=== PATIENT | female | born 1945 | race Caucasian/White ===

== ENCOUNTER 2020-03-18 06:26 | Inpatient (IN) ==
[2020-03-18] MEDS ORDERED: NITROGLYCERIN SL 0.4 MG TABLET SL PRN (07:01)
[2020-03-18 07:08] LABS: Basophils # 0.1 10*3/uL (0.0-0.2); Basophils % 0.5 % (0.0-0.8); Eosinophils # 0.6 10*3/uL (0.0-0.87); Eosinophils % 2.5 % (0.00-10.9); Hematocrit 39.4 VOL% (35.7-47.0); Hemoglobin 12.5 GM/DL (12.0-16.0); Immature Granulocytes % 0.5 %; Immature Granulocytes Absolute 0.12 #; Lymphocytes % 16.5 % (21.3-54.2); Mean Corpuscular HGB Conc 31.7 GM/DL (32-36); Mean Corpuscular Volume 91.2 FL (87-102); Mean Platelet Volume 10.2 FL (9.6-12.0); Monocytes % 5.7 % (1.7-12.7); Neutrophils % 74.3 % (38.7-73.9); Platelet Count 390 T/CUMM (130-400); Red Blood Count 4.32 MC/CUMM (3.8-5.5); Red Cell Distribution Width 15.6 % (9.3-17.3); White Blood Count 24.2 T/CUMM (4-12)
[2020-03-18 07:27] LABS: Albumin 3.5 G/DL (3.4-5.0); Band Neutrophils 1 % (0-10); Bilirubin,Total 0.5 MG/DL (0.2-1.0); Calcium 9.4 MG/DL (8.5-10.1); Eosinophils 3 % (0-10); Hypochromasia 1+; Lymphocytes 15 % (20-55); Microcytosis 1+; Osmolality,Calculated 282.4 MOS/KG (273-304); Platelet Estimate Normal; Segmented Neutrophils 76 % (50-85); Total Cells Counted 100; Total Protein 7.6 G/DL (6.4-8.3)
[2020-03-18] MEDS ORDERED: cefTRIAXone 1,000 MG in SODIUM CHLORIDE 0.9% 100 ML IV STA (08:22)
[2020-03-18] MEDS ORDERED: DEXTROSE 50% 25 GM/50 ML VIAL IV PRN (09:31)
[2020-03-18] MEDS ORDERED: GLUCAGON 1 MG VIAL IM PRN (09:31)
[2020-03-18] MEDS ORDERED: ONDANSETRON 4 MG/2 ML VIAL IV PRN (09:31)
[2020-03-18] MEDS: cefTRIAXone 1,000 MG in SYRINGE 1 EACH IV SCH (10:07)
[2020-03-18] MEDS ORDERED: hydrOXYzine HCL 25 MG TABLET PO PRN (10:15)
[2020-03-18] MEDS: SODIUM CHLORIDE 0.9% 1,000 ML IV SCH (11:38)
[2020-03-18] MEDS: AZITHROMYCIN INJ 500 MG in SODIUM CHLORIDE 0.9% 250 ML IV SCH (11:54)
[2020-03-18] MEDS: ENOXAPARIN 30 MG/0.3 ML SYRINGE SUBCUT SCH (11:56)
[2020-03-18] MEDS: predniSONE 5 MG TABLET PO SCH ×2 (14:43→20:07)
[2020-03-18] MEDS: VERAPAMIL SR 180 MG TABLET PO SCH (20:07)
[2020-03-19] MEDS: MORPHINE 4 MG/1 ML VIAL IV PRN ×4 (01:27→19:39)
[2020-03-19 05:35] LABS: Basophils # 0.1 10*3/uL (0.0-0.2); Basophils % 0.5 % (0.0-0.8); Eosinophils % 0.3 % (0.00-10.9); Hemoglobin 10.7 GM/DL (12.0-16.0); Immature Granulocytes % 0.4 %; Immature Granulocytes Absolute 0.05 #; Lymphocytes # 2.7 10*3/uL (1.4-4.0); Lymphocytes % 21.3 % (21.3-54.2); Mean Corpuscular HGB Conc 31.5 GM/DL (32-36); Mean Corpuscular Volume 90.2 FL (87-102); Mean Platelet Volume 10.3 FL (9.6-12.0); Monocytes % 10.2 % (1.7-12.7); Neutrophils % 67.3 % (38.7-73.9); Platelet Count 314 T/CUMM (130-400); Red Blood Count 3.77 MC/CUMM (3.8-5.5); Red Cell Distribution Width 15.4 % (9.3-17.3); White Blood Count 12.9 T/CUMM (4-12)
[2020-03-19 06:04] LABS: Calcium 9.1 MG/DL (8.5-10.1); Osmolality,Calculated 278.5 MOS/KG (273-304)
[2020-03-19] MEDS: SODIUM CHLORIDE 0.9% 1,000 ML IV SCH ×3 (07:23→23:10)
[2020-03-19] MEDS: cefTRIAXone 1,000 MG in SYRINGE 1 EACH IV SCH (09:24)
[2020-03-19] MEDS: ENOXAPARIN 30 MG/0.3 ML SYRINGE SUBCUT SCH (09:24)
[2020-03-19] MEDS: predniSONE 5 MG TABLET PO SCH ×2 (09:27→20:53)
[2020-03-19] MEDS: AZITHROMYCIN INJ 500 MG in SODIUM CHLORIDE 0.9% 250 ML IV SCH (09:27)
[2020-03-19] MEDS: PANTOPRAZOLE 40 MG TABLET PO SCH (10:41)
[2020-03-19] MEDS: VERAPAMIL SR 180 MG TABLET PO SCH ×2 (10:42→20:53)
[2020-03-19] MEDS: LEVOTHYROXINE 112 MCG TABLET PO SCH (10:42)
[2020-03-19] MEDS: SERTRALINE 100 MG TABLET PO SCH (10:43)
[2020-03-20] MEDS: MORPHINE 4 MG/1 ML VIAL IV PRN ×6 (00:41→23:00)
[2020-03-20 06:03] LABS: Basophils # 0.1 10*3/uL (0.0-0.2); Basophils % 0.7 % (0.0-0.8); Eosinophils # 0.1 10*3/uL (0.0-0.87); Eosinophils % 1.4 % (0.00-10.9); Hematocrit 32.3 VOL% (35.7-47.0); Hemoglobin 10.3 GM/DL (12.0-16.0); Immature Granulocytes % 0.4 %; Immature Granulocytes Absolute 0.04 #; Lymphocytes # 2.2 10*3/uL (1.4-4.0); Lymphocytes % 22.5 % (21.3-54.2); Mean Corpuscular HGB Conc 31.9 GM/DL (32-36); Mean Corpuscular Volume 90.7 FL (87-102); Mean Platelet Volume 10.5 FL (9.6-12.0); Monocytes % 7.2 % (1.7-12.7); Neutrophils % 67.8 % (38.7-73.9); Platelet Count 321 T/CUMM (130-400); Red Blood Count 3.56 MC/CUMM (3.8-5.5); Red Cell Distribution Width 15.3 % (9.3-17.3); White Blood Count 9.8 T/CUMM (4-12)
[2020-03-20 06:25] LABS: Albumin 2.8 G/DL (3.4-5.0); Bilirubin,Total 0.7 MG/DL (0.2-1.0); Calcium 8.8 MG/DL (8.5-10.1); Osmolality,Calculated 283.4 MOS/KG (273-304); Total Protein 6.6 G/DL (6.4-8.3)
[2020-03-20] MEDS: cefTRIAXone 1,000 MG in SYRINGE 1 EACH IV SCH (09:24)
[2020-03-20] MEDS: ENOXAPARIN 30 MG/0.3 ML SYRINGE SUBCUT SCH (09:24)
[2020-03-20] MEDS: AZITHROMYCIN INJ 500 MG in SODIUM CHLORIDE 0.9% 250 ML IV SCH (09:24)
[2020-03-20] MEDS: MULTIVITAMIN (CENTRUM) TABLET PO SCH (09:28)
[2020-03-20] MEDS: LEVOTHYROXINE 112 MCG TABLET PO SCH (09:28)
[2020-03-20] MEDS: SERTRALINE 100 MG TABLET PO SCH (09:28)
[2020-03-20] MEDS: VERAPAMIL SR 180 MG TABLET PO SCH ×2 (09:28→21:01)
[2020-03-20] MEDS: predniSONE 5 MG TABLET PO SCH ×2 (09:28→20:19)
[2020-03-20] MEDS: PANTOPRAZOLE 40 MG TABLET PO SCH (09:28)
[2020-03-20] MEDS: SODIUM CHLORIDE 0.9% 1,000 ML IV SCH (18:15)
[2020-03-21] MEDS: MORPHINE 4 MG/1 ML VIAL IV PRN (02:10)
[2020-03-21 05:10] LABS: Basophils # 0.1 10*3/uL (0.0-0.2); Basophils % 0.9 % (0.0-0.8); Eosinophils # 0.4 10*3/uL (0.0-0.87); Eosinophils % 3.9 % (0.00-10.9); Hematocrit 34.8 VOL% (35.7-47.0); Hemoglobin 10.6 GM/DL (12.0-16.0); Immature Granulocytes % 0.3 %; Immature Granulocytes Absolute 0.03 #; Lymphocytes # 4.1 10*3/uL (1.4-4.0); Lymphocytes % 42.3 % (21.3-54.2); Mean Corpuscular HGB Conc 30.5 GM/DL (32-36); Mean Corpuscular Volume 92.3 FL (87-102); Mean Platelet Volume 10.4 FL (9.6-12.0); Monocytes % 6.4 % (1.7-12.7); Neutrophils % 46.2 % (38.7-73.9); Platelet Count 326 T/CUMM (130-400); Red Blood Count 3.77 MC/CUMM (3.8-5.5); Red Cell Distribution Width 15.4 % (9.3-17.3); White Blood Count 9.8 T/CUMM (4-12)
[2020-03-21 05:31] LABS: Hypochromasia 1+
[2020-03-21 05:32] LABS: Microcytosis Slight; Platelet Estimate Normal; Target Cells Slight
[2020-03-21 05:40] LABS: Albumin 2.9 G/DL (3.4-5.0); Bilirubin,Total 0.7 MG/DL (0.2-1.0); Calcium 9.9 MG/DL (8.5-10.1); Osmolality,Calculated 284.4 MOS/KG (273-304); Total Protein 6.7 G/DL (6.4-8.3)
[2020-03-21] MEDS: LEVOTHYROXINE 112 MCG TABLET PO SCH (08:57)
[2020-03-21] MEDS: SERTRALINE 100 MG TABLET PO SCH (08:57)
[2020-03-21] MEDS: PANTOPRAZOLE 40 MG TABLET PO SCH (08:57)
[2020-03-21] MEDS: VERAPAMIL SR 180 MG TABLET PO SCH (08:57)
[2020-03-21] MEDS: predniSONE 5 MG TABLET PO SCH (08:57)
[2020-03-21] MEDS: MULTIVITAMIN (CENTRUM) TABLET PO SCH (08:57)
[2020-03-21] MEDS: ENOXAPARIN 30 MG/0.3 ML SYRINGE SUBCUT SCH (09:02)
[2020-03-21] MEDS: AZITHROMYCIN INJ 500 MG in SODIUM CHLORIDE 0.9% 250 ML IV SCH (09:02)
[2020-03-21] MEDS: cefTRIAXone 1,000 MG in SYRINGE 1 EACH IV SCH (09:15)
[2020-03-21 11:30] VITALS: BP 161/74
== END 2020-03-21 13:34 | disposition home health service (06) | DRG 194 ==
LOC: EDBD → EDUNIT# → N.EDINP 06:26 → N.ED 06:26 → SUATTDRO 09:31 → N.TELES 12:12
PROVIDERS: ADMIT Internal Medicine Geriatric Medicine; ATTEND Internal Medicine